=== PATIENT | female | born 1935 | race Caucasian/White ===

== ENCOUNTER 2019-04-05 08:06 | Day surgery (SDC) | payer MEDICARE, BC ==
[2019-04-05] VITALS (17 sets, daily range): BP systolic 107–145; BP diastolic 44–81
[~2019-04-05] VITALS: Ht 170.2 cm; Wt 91.5 kg
[2019-04-05] MEDS ORDERED: diphenhydrAMINE 25mg capsule PO PRN (08:40)
[2019-04-05] MEDS ORDERED: CLOP75TA33 PO (08:40)
[2019-04-05] MEDS ORDERED: BIOT5000 (08:40)
[2019-04-05] MEDS ORDERED: normal saline 1,000 ML IV SCH (08:40)
[2019-04-05] MEDS ORDERED: LOSA50TA3 PO (08:40)
[2019-04-05] MEDS ORDERED: ASPI-611 PO (08:40)
[2019-04-05] MEDS ORDERED: ESTR0.3T PO (08:40)
[2019-04-05] MEDS ORDERED: METO50TA17 PO (08:40)
[2019-04-05] MEDS ORDERED: EVOL140S (08:40)
[2019-04-05] MEDS ORDERED: MAGN250T11 PO (08:40)
[2019-04-05 09:01] LABS: BASOPHILS # (AUTO) 0.1 X10'3 (0-0.2); BASOPHILS % (AUTO) 0.8 % (0-1); EOSINOPHILS # (AUTO) 0.6 X10'3 (0-0.9); EOSINOPHILS % (AUTO) 7.4 % (0-6); HEMATOCRIT 41.8 % (35.0-45.0); HEMOGLOBIN 14.2 g/dl (12.0-16.0); LYMPHOCYTES # (AUTO) 1.6 X10'3 (1.1-4.8); LYMPHOCYTES % (AUTO) 21.2 % (21-51); MEAN CORPUSCULAR HEMOGLOBIN 30.3 PG (27.0-31.0); MEAN CORPUSCULAR HGB CONC 34.1 g/dL (33.0-36.5); MEAN CORPUSCULAR VOLUME 88.8 FL (78-98); MONOCYTES # (AUTO) 0.8 X10'3 (0-0.9); MONOCYTES % (AUTO) 10.5 % (2-12); NEUTROPHILS # (AUTO) 4.5 X10'3 (1.8-7.7); NEUTROPHILS % (AUTO) 60.1 % (42-75); PLATELET COUNT 226 X10'3 (140-440); RED CELL DISTRIBUTION WIDTH 13.3 % (11.5-14.5); WHITE BLOOD COUNT 7.5 X10'3 (4.5-11.0)
[2019-04-05] MEDS ORDERED: LIDOcaine 1% (10mg/ml)w/preservative injection 20ml MDV ONE (09:04)
[2019-04-05] MEDS ORDERED: iohexol 350MG/ML 100ml bottle IV ONE ×2 (09:04→10:01)
[2019-04-05] MEDS ORDERED: fentaNYL/PF 50MCG/1 ML 2ML syringe ONE ×2 (09:04→10:31)
[2019-04-05] MEDS ORDERED: midazolam 2 mg/2 ml injection ONE ×3 (09:04→10:27)
[2019-04-05] MEDS ORDERED: iohexol 350 MG/ML 50ML vial IV ONE (09:04)
[2019-04-05] MEDS ORDERED: verapamil 2.5 mg/ml inj IV ONE (09:07)
[2019-04-05] MEDS ORDERED: nitroGLYCERIN-Tridil 50MG/D5W 250 ML IV ONE (09:07)
[2019-04-05] MEDS ORDERED: heparin 1,000unit/ml 10ml vial 10 ML ONE (09:08)
[2019-04-05 09:13] LABS: ALBUMIN 3.6 G/DL (3.4-5.0); ANION GAP 7 (8-16); BLOOD UREA NITROGEN 12 MG/DL (7-18); BUN/CREATININE RATIO 13.5 (6.6-38.0); CALCIUM 9.2 MG/DL (8.5-10.1); CHLORIDE 105 MMOL/L (99-107); CREATININE 0.89 MG/DL (0.40-0.90); GLUCOSE 98 MG/DL (70-104); MAGNESIUM 1.9 MG/DL (1.5-2.4); POTASSIUM 3.8 MMOL/L (3.5-5.1); SODIUM 137 MMOL/L (135-145); TOTAL CARBON DIOXIDE 25.1 MMOL/L (24-32); eGFR 61 ML/MIN
[2019-04-05] MEDS ORDERED: clopidogrel 300mg tablet ONE (11:04)
[2019-04-05] MEDS ORDERED: HYDROcodone/acetaminophen 10/325mg tab PO PRN (11:30)
[2019-04-05] MEDS ORDERED: HYDROcodone/acetaminophen 5mg/325mg tablet PO PRN (11:30)
== END 2019-04-05 16:40 | disposition home or self-care (01) ==
LOC: SSTAY O 08:06
PROVIDERS: ATTEND Internal Medicine Cardiovascular Disease
DX: I25.118 Atherosclerotic heart disease of native coronary artery with other forms of angina pectoris (principal); I10 Essential (primary) hypertension; E78.5 Hyperlipidemia, unspecified; E03.9 Hypothyroidism, unspecified; J44.9 Chronic obstructive pulmonary disease, unspecified; E11.9 Type 2 diabetes mellitus without complications; Z90.49 Acquired absence of other specified parts of digestive tract; Z90.710 Acquired absence of both cervix and uterus; Z98.890 Other specified postprocedural states; Z88.6 Allergy status to analgesic agent; Z79.82 Long term (current) use of aspirin; Z79.01 Long term (current) use of anticoagulants; Z88.8 Allergy status to other drugs, medicaments and biological substances; Z87.891 Personal history of nicotine dependence
CPT/HCPCS: 36415; 80048; 83735; 85025; 85610; 93005; 93458; 99152; 99153; C1769; C1874; C9600; C9601; J1644; J2001; J2250; J3010; J7030; Q0163; Q9967; A4620; J3490

== ENCOUNTER 2023-05-12 07:52 | Day surgery (SDC) | payer MEDICARE, BC ==
[~2023-05-12] VITALS: Ht 167.6 cm; Wt 87.5 kg
[2023-05-12] VITALS (9 sets, daily range): BP systolic 124–175; BP diastolic 42–62; PULSE 42–52; RESP 12–16; TEMP 98.2; O2SAT 95–99
[~2023-05-12 07:52] MED LIST: ASPI-611 PO; BIOT5000; CLOP75TA33 PO; ESTR0.3T PO; EVOL140S2; LOSA-416 PO; MAGN250T11 PO; METO50TA17 PO
[2023-05-12] MEDS ORDERED: diphenhydrAMINE 25mg capsule PO PRN (08:15)
[2023-05-12] MEDS ORDERED: normal saline 1,000 ML IV SCH (08:15)
[2023-05-12 08:58] LABS: BASOPHILS # (AUTO) 0.1 X10'3 (0-0.2); BASOPHILS % (AUTO) 0.9 % (0-1); EOSINOPHILS # (AUTO) 0.4 X10'3 (0-0.9); EOSINOPHILS % (AUTO) 5.4 % (0-6); HEMATOCRIT 46.4 % (35.0-45.0); HEMOGLOBIN 15.8 g/dl (12.0-16.0); LYMPHOCYTES # (AUTO) 1.7 X10'3 (1.1-4.8); LYMPHOCYTES % (AUTO) 24.2 % (21-51); MEAN CORPUSCULAR HEMOGLOBIN 30.2 PG (27.0-31.0); MEAN CORPUSCULAR VOLUME 88.9 FL (78-98); MEAN PLATELET VOLUME 8.2 FL (7.4-10.4); MONOCYTES # (AUTO) 0.7 X10'3 (0-0.9); MONOCYTES % (AUTO) 9.5 % (2-12); NEUTROPHILS # (AUTO) 4.3 X10'3 (1.8-7.7); PLATELET COUNT 251 X10'3 (140-440); RED BLOOD COUNT 5.22 X10'6 (4.20-5.60); WHITE BLOOD COUNT 7.2 X10'3 (4.5-11.0)
[2023-05-12] MEDS ORDERED: HYDR12.55 PO (09:02)
[2023-05-12] MEDS ORDERED: DICLOFENAC (09:02)
[2023-05-12 09:06] LABS: ALBUMIN 4.3 G/DL (3.4-5.0); ANION GAP 12 (8-16); BLOOD UREA NITROGEN 20 MG/DL (7-18); BUN/CREATININE RATIO 23.5 (10.0-20.0); CALCIUM 10.1 MG/DL (8.5-10.1); CHLORIDE 104 MMOL/L (99-107); CREATININE 0.85 MG/DL (0.40-0.90); GLUCOSE 96 MG/DL (70-104); MAGNESIUM 2.4 MG/DL (1.5-2.4); POTASSIUM 4.1 MMOL/L (3.5-5.1); SODIUM 140 MMOL/L (135-145); TOTAL CARBON DIOXIDE 24.4 MMOL/L (24-32); eGFR 63 ML/MIN
[2023-05-12] MEDS ORDERED: LIDOcaine 1% (10mg/ml) 2ml vial ONE (09:48)
[2023-05-12] MEDS ORDERED: verapamil 2.5 mg/ml inj IV ONE (09:48)
[2023-05-12] MEDS ORDERED: nitroGLYCERIN-Tridil 50MG/D5W 250 ML IV ONE (09:48)
[2023-05-12] MEDS ORDERED: iohexol 350 MG/ML 50ML vial IV ONE ×2 (09:49→11:36)
[2023-05-12] MEDS ORDERED: heparin 1,000unit/ml 10ml vial 10 ML ONE (09:49)
[2023-05-12] MEDS ORDERED: iohexol 350MG/ML 100ml bottle IV ONE ×2 (09:49→11:50)
[2023-05-12] MEDS ORDERED: fentaNYL/PF 50MCG/1 ML 2ML syringe ONE (09:49)
[2023-05-12] MEDS ORDERED: midazolam 1 mg/ML 2ml injection ONE ×3 (09:49→11:29)
[2023-05-12] MEDS ORDERED: LIDOcaine 1% 30ml preserv. free vial ONE (11:15)
[2023-05-12] MEDS ORDERED: HYDROmorphone 1 mg/ml syringe ONE (12:12)
[2023-05-12] MEDS ORDERED: ketorolac tromethamine 15mg/ml inj. IV ONE (12:15)
[2023-05-12] MEDS ORDERED: protamine sulfate 10mg/ml inj. ONE (12:16)
[2023-05-12] MEDS ORDERED: normal saline 1000ml 1,000 ML IV SCH (13:05)
[2023-05-12] MEDS ORDERED: HYDROcodone/acetaminophen 5mg/325mg tablet PO PRN (13:05)
[2023-05-12] MEDS ORDERED: HYDROcodone/acetaminophen 10/325mg tab PO PRN (13:05)
[2023-05-12] MEDS ORDERED: proCHLORperazine 10 MG/2 ml inj IV PRN (13:05)
[2023-05-12] MEDS ORDERED: ondansetron/PF 4mg/2ml inj IV PRN (13:05)
[2023-05-23] MEDS ORDERED: LOSA50TA64 PO (08:53)
== END 2023-05-12 16:00 | disposition home or self-care (01) ==
LOC: SSTAY O 07:52
PROVIDERS: ATTEND Internal Medicine Cardiovascular Disease
DX: I25.118 Atherosclerotic heart disease of native coronary artery with other forms of angina pectoris (principal); I65.22 Occlusion and stenosis of left carotid artery; I25.2 Old myocardial infarction; I10 Essential (primary) hypertension; E78.5 Hyperlipidemia, unspecified; Z79.82 Long term (current) use of aspirin; Z79.899 Other long term (current) drug therapy; Z79.01 Long term (current) use of anticoagulants; Z90.49 Acquired absence of other specified parts of digestive tract; Z90.710 Acquired absence of both cervix and uterus; Z90.722 Acquired absence of ovaries, bilateral; Z98.890 Other specified postprocedural states; Z87.891 Personal history of nicotine dependence; Z88.5 Allergy status to narcotic agent; Z88.8 Allergy status to other drugs, medicaments and biological substances
CPT/HCPCS: 36415; 80048; 83735; 85025; 85610; 93005; 93308; 93458; 93571; 99152; 99153; A6258; J1170; J1644; J2250; J2720; J3010; J3490; J7030; Q0163; Q9967; 0523T; A6402; A6449; C1725; C1751; C1760; C1769; C1894